=== PATIENT | male | born 1970 | race Caucasian/White ===

== ENCOUNTER 2023-09-14 21:15 | Emergency (ER) | payer SELFPAY ==
[~2023-09-14] VITALS: Ht 165.1 cm; Wt 82.0 kg
[2023-09-14 21:17] VITALS: O2SAT 100
[2023-09-14 23:03] LABS: BASOPHILS % 0.5 % (0.0-2.0); EOSINOPHILS % 0.7 % (0.0-5.0); HEMATOCRIT. 45.2 % (42.0-52.0); HEMOGLOBIN. 15.2 g/dL (14.0-18.0); LYMPHOCYTES % 10.6 % (20.0-50.0); MEAN CORPUSCULAR HEMOGLOBIN 30.3 pg (28.0-32.0); MEAN CORPUSCULAR HGB CONC 33.6 g/dL (31.0-37.0); MEAN CORPUSCULAR VOLUME 90.1 fL (80.0-94.0); MEAN PLATELET VOLUME 9.5 fl (7.4-10.4); MONOCYTES % 6.2 % (2.0-8.0); PLATELET 256 x1000/uL (130-400); RED BLOOD CELL COUNT 5.01 mill/uL (4.7-6.1); RED CELL DISTRIBUTION WIDTH 13.8 % (11.6-14.6); WHITE BLOOD COUNT 10.9 x1000/uL (4.5-11.0)
[2023-09-14 23:24] LABS: ALANINE AMINOTRANSFERASE 25 IU/L (10-49); ALBUMIN 4.6 g/dL (3.2-4.8); ASPARTATE AMINOTRANSFERASE 33 IU/L (<34); BILIRUBIN TOTAL 0.7 mg/dL (0.1-1.0); CALCIUM 9.2 mg/dL (8.7-10.4); CARBON DIOXIDE 23 mEq/L (21-32); CHLORIDE 103 mEq/L (98-107); CREATININE 0.8 mg/dL (0.6-1.3); GLUCOSE 92 mg/dL (70-105); POTASSIUM 3.8 mEq/L (3.5-5.1); PROTEIN TOTAL 7.8 g/dL (6.0-8.3); SODIUM 135 mEq/L (136-145); UREA NITROGEN BLOOD 12 mg/dL (9-23)
[2023-09-15 01:07] VITALS: BP 141/79; PULSE 61; RESP 18; TEMP 98.2
[2023-09-15] MEDS ORDERED: ENAL5TAB75 MT (01:16)
== END 2023-09-15 01:37 | disposition home or self-care (01) ==
LOC: ER 21:15
DX: I10 Essential (primary) hypertension (principal); Z98.890 Other specified postprocedural states
CPT/HCPCS: 36415; 80053; 85025; 99283

== ENCOUNTER 2023-09-29 19:35 | Inpatient (IN) | payer SELFPAY ==
[~2023-09-29] VITALS: Ht 160 cm; Wt 81.7 kg
[~2023-09-29 19:35] MED LIST: ENAL5TAB75 MT
[2023-09-29 20:42] LABS: BASOPHILS % 0.4 % (0.0-2.0); EOSINOPHILS % 0.9 % (0.0-5.0); HEMATOCRIT. 43.9 % (42.0-52.0); HEMOGLOBIN. 15.1 g/dL (14.0-18.0); LYMPHOCYTES % 12.7 % (20.0-50.0); MEAN CORPUSCULAR HEMOGLOBIN 30.7 pg (28.0-32.0); MEAN CORPUSCULAR HGB CONC 34.3 g/dL (31.0-37.0); MEAN CORPUSCULAR VOLUME 89.5 fL (80.0-94.0); MEAN PLATELET VOLUME 9.6 fl (7.4-10.4); MONOCYTES % 6.1 % (2.0-8.0); NEUTROPHILS % 79.9 % (40.0-76.0); PLATELET 226 x1000/uL (130-400); RED CELL DISTRIBUTION WIDTH 13.6 % (11.6-14.6); WHITE BLOOD COUNT 10.7 x1000/uL (4.5-11.0)
[2023-09-29 20:44] LABS: CLARITY URINE CLEAR (CLEAR); COLOR URINE YELLOW (YELLOW); GLUCOSE URINE NEGATIVE (NEGATIVE); KETONES URINE NEGATIVE (NEGATIVE); LEUKOCYTE ESTERASE URINE NEGATIVE (NEGATIVE); NITRITE URINE NEGATIVE (NEGATIVE); OCCULT BLOOD URINE NEGATIVE (NEGATIVE); PROTEIN URINE NEGATIVE (NEGATIVE); SPECIFIC GRAVITY URINE 1.005 (1.005-1.030); UROBILINOGEN URINE 0.2 E.U./dL (0.2-1.0)
[2023-09-29 20:56] LABS: ALANINE AMINOTRANSFERASE 24 IU/L (10-49); ALBUMIN 4.4 g/dL (3.2-4.8); ASPARTATE AMINOTRANSFERASE 21 IU/L (<34); BILIRUBIN TOTAL 0.5 mg/dL (0.1-1.0); CARBON DIOXIDE 26 mEq/L (21-32); CHLORIDE 108 mEq/L (98-107); CREATININE 0.8 mg/dL (0.6-1.3); GLUCOSE 116 mg/dL (70-105); POTASSIUM 3.9 mEq/L (3.5-5.1); PROTEIN TOTAL 7.5 g/dL (6.0-8.3); SODIUM 139 mEq/L (136-145); TROPONIN I HIGH SENSITIVITY 4 ng/L (3.0-53); UREA NITROGEN BLOOD 18 mg/dL (9-23)
[2023-09-29] MEDS ORDERED: ASPIRIN 81MG TABLET PO ONE (23:00)
[2023-09-30 00:49] VITALS: BP 134/91; PULSE 65; RESP 23; TEMP 97.9
[2023-09-30] MEDS ORDERED: FAMO20TA8 MT (01:03)
[2023-09-30] MEDS ORDERED: ASPI-1497 MT (01:03)
[2023-09-30] MEDS ORDERED: LOSA50TA41 MT ×2 (01:03→09:18)
[2023-09-30] MEDS ORDERED: HYDROCODONE/ACETAMINOPHEN 5/325MG TABLET PO PRN (03:30)
[2023-09-30] MEDS ORDERED: NALOXONE HCL 0.4MG/ML VIAL IV PRN (03:30)
[2023-09-30 05:57] VITALS: BP 143/88; PULSE 65; RESP 21; TEMP 97.9
[2023-09-30 07:12] LABS: BASOPHILS % 0.3 % (0.0-2.0); HEMATOCRIT. 43.1 % (42.0-52.0); HEMOGLOBIN. 14.8 g/dL (14.0-18.0); LYMPHOCYTES % 16.1 % (20.0-50.0); MEAN CORPUSCULAR HEMOGLOBIN 30.8 pg (28.0-32.0); MEAN CORPUSCULAR HGB CONC 34.3 g/dL (31.0-37.0); MEAN CORPUSCULAR VOLUME 89.7 fL (80.0-94.0); MEAN PLATELET VOLUME 9.9 fl (7.4-10.4); MONOCYTES % 6.2 % (2.0-8.0); NEUTROPHILS % 76.4 % (40.0-76.0); PLATELET 205 x1000/uL (130-400); RED BLOOD CELL COUNT 4.81 mill/uL (4.7-6.1); RED CELL DISTRIBUTION WIDTH 13.7 % (11.6-14.6); WHITE BLOOD COUNT 9.3 x1000/uL (4.5-11.0)
[2023-09-30 07:42] LABS: ALANINE AMINOTRANSFERASE 21 IU/L (10-49); ALBUMIN 4.2 g/dL (3.2-4.8); ASPARTATE AMINOTRANSFERASE 17 IU/L (<34); BILIRUBIN TOTAL 0.7 mg/dL (0.1-1.0); CALCIUM 8.9 mg/dL (8.7-10.4); CARBON DIOXIDE 25 mEq/L (21-32); CHLORIDE 108 mEq/L (98-107); CREATININE 0.8 mg/dL (0.6-1.3); GLUCOSE 100 mg/dL (70-105); POTASSIUM 3.5 mEq/L (3.5-5.1); PROTEIN TOTAL 7.1 g/dL (6.0-8.3); SODIUM 142 mEq/L (136-145); TROPONIN I HIGH SENSITIVITY 4 ng/L (3.0-53); UREA NITROGEN BLOOD 14 mg/dL (9-23)
[2023-09-30 08:00] VITALS: BP 122/95; PULSE 61; RESP 13; TEMP 98
[2023-09-30] MEDS ORDERED: MAGNESIUM/ALUMINUM HYDROXIDE/SIMETHICONE 30ML UDC PO PRN (08:15)
[2023-09-30] MEDS ORDERED: CLONIDINE 0.1MG TABLET PO PRN (08:15)
[2023-09-30] MEDS ORDERED: ONDANSETRON HCL 4MG/2ML INJ IV PRN (08:15)
[2023-09-30] MEDS: LISINOPRIL 10MG TABLET PO SCH (08:38)
[2023-09-30] MEDS: ENOXAPARIN 40MG/0.4ML SYR SUBCUT SCH (08:38)
[2023-09-30] MEDS: ASPIRIN 81MG EC TABLET PO SCH (08:41)
[2023-09-30] MEDS ORDERED: LOSARTAN 50 MG TABLET PO SCH (09:00)
[2023-09-30] MEDS ORDERED: ENALAPRIL 5MG TABLET PO SCH (09:00)
[2023-09-30 09:39] LABS: HEPATITIS B SURFACE ANTIGEN NEGATIVE (Negative); HEPATITIS C AB NON REACTIVE (Neg) (Negative)
[2023-09-30 12:00] VITALS: BP 120/83; PULSE 70; RESP 14; TEMP 98.2
[2023-09-30] MEDS ORDERED: NITROGLYCERIN SPRAY/4.9GM CAN TL NR (12:30)
[2023-09-30] MEDS ORDERED: IOHEXOL-350 100 ML BOTTLE ONE (12:53)
[2023-09-30 12:55] LABS: TROPONIN I HIGH SENSITIVITY < 4 ng/L (3.0-53)
[2023-09-30] MEDS ORDERED: INFLUENZA VACCINE 05/PF 0.5 ML SYRINGE IM ONE (15:00)
[2023-09-30] MEDS ORDERED: PNEUMOCOCCAL 23-VAL P-SAC VAC 0.5 ML IM ONE (15:00)
[2023-09-30 16:00] VITALS: BP 115/76; PULSE 57; RESP 17; TEMP 98.2
[2023-09-30 16:50] LABS: TROPONIN I HIGH SENSITIVITY 4 ng/L (3.0-53)
[2023-09-30 20:00] VITALS: BP 119/70; PULSE 82; RESP 20; TEMP 99.3
[2023-09-30] MEDS ORDERED: ATORVASTATIN CALCIUM 20MG TABLET PO SCH (21:00)
[2023-10-01 00:19] VITALS: BP 115/72; PULSE 78; RESP 20; TEMP 98.7
[2023-10-01 04:00] VITALS: BP 100/75; PULSE 65; RESP 20; TEMP 98
[2023-10-01 06:46] LABS: BASOPHILS % 0.5 % (0.0-2.0); EOSINOPHILS % 1.5 % (0.0-5.0); HEMATOCRIT. 44.3 % (42.0-52.0); HEMOGLOBIN. 15.3 g/dL (14.0-18.0); LYMPHOCYTES % 17.8 % (20.0-50.0); MEAN CORPUSCULAR HEMOGLOBIN 30.7 pg (28.0-32.0); MEAN CORPUSCULAR HGB CONC 34.4 g/dL (31.0-37.0); MEAN CORPUSCULAR VOLUME 89.1 fL (80.0-94.0); MEAN PLATELET VOLUME 9.5 fl (7.4-10.4); MONOCYTES % 6.4 % (2.0-8.0); NEUTROPHILS % 73.8 % (40.0-76.0); PLATELET 211 x1000/uL (130-400); RED BLOOD CELL COUNT 4.98 mill/uL (4.7-6.1); RED CELL DISTRIBUTION WIDTH 14.2 % (11.6-14.6); WHITE BLOOD COUNT 8.3 x1000/uL (4.5-11.0)
[2023-10-01 07:57] LABS: CALCIUM 9.2 mg/dL (8.7-10.4); CARBON DIOXIDE 27 mEq/L (21-32); CHLORIDE 110 mEq/L (98-107); CHOLESTEROL 147 mg/dL (<200); CREATININE 0.8 mg/dL (0.6-1.3); GLUCOSE 95 mg/dL (70-105); HDL CHOLESTEROL 46 mg/dL (>55); LDL CHOLESTEROL 79 mg/dL (5-100); POTASSIUM 4.2 mEq/L (3.5-5.1); SODIUM 142 mEq/L (136-145); TRIGLYCERIDE 80 mg/dL (0-150); UREA NITROGEN BLOOD 18 mg/dL (9-23)
[2023-10-01 08:00] VITALS: BP 112/74; PULSE 56; RESP 16; TEMP 98.2
[2023-10-01] MEDS: LISINOPRIL 10MG TABLET PO SCH (08:40)
[2023-10-01] MEDS: ENOXAPARIN 40MG/0.4ML SYR SUBCUT SCH (08:40)
[2023-10-01] MEDS: ASPIRIN 81MG EC TABLET PO SCH (08:40)
[2023-10-01 12:00] VITALS: BP 100/69; PULSE 65; RESP 11; TEMP 98.4
[2023-10-01] MEDS ORDERED: ATOR20TA PO (12:43)
[2023-10-01] MEDS ORDERED: LISI10TA26 PO (12:43)
[2023-10-01 15:15] VITALS: BP 100/69; PULSE 65; TEMP 98.4; O2SAT 99
== END 2023-10-01 15:50 | disposition home or self-care (01) | DRG 203 ==
LOC: ER 19:35 → MICUSO 09-30 00:29 → 3WST 09-30 00:53
PROVIDERS: ADMIT Family Medicine Adult Medicine; ATTEND Family Medicine Adult Medicine
DX: R07.89 Other chest pain (principal); E78.5 Hyperlipidemia, unspecified; I10 Essential (primary) hypertension; Z79.899 Other long term (current) drug therapy; Z79.82 Long term (current) use of aspirin
CPT/HCPCS: 36415; 71045; 75571; 80048; 80053; 80061; 81003; 83735; 84100; 84484; 85025; 86705; 87340; 90686; 90732; 93005; 93306; 93970; J1650; Q9967